=== PATIENT | female | born 1950 | race Caucasian/White ===

== ENCOUNTER 2020-12-27 06:05 | Day surgery (SDC) | payer MEDICARE ==
[2020-12-27] MEDS ORDERED: Lactated Ringers 1,000 ML IV ONE (06:30)
[2020-12-27] MEDS ORDERED: Lactated Ringers 1,000 ML IV SCH (07:00)
[2020-12-27] MEDS ORDERED: DIPRIVAN 200 MG/20 ML IV ONE (07:09)
[2020-12-27 08:31] VITALS: O2SAT 96
[2020-12-27 09:10] VITALS: BP 137/61; PULSE 63
--- NOTE | 2020-12-27 09:25 | OP ---
SURGERY DATE/TIME: 12/27/2020 0711 PREOPERATIVE DIAGNOSIS: History of colon polyp. POSTOPERATIVE DIAGNOSIS: Sigmoid diverticulosis otherwise normal colon. PROCEDURE: Colonoscopy. SURGEON: Dr. Pineda. ANESTHESIA: MAC. Medications given by anesthesia department. HISTORY: The patient is a 70 year-old white female who has a history of a large sigmoid colon polyp removed. It was apparently tattooed at the time. The patient was felt the need to have re-evaluation. She was reappraised of the risks of the procedure including the risk of perforation, phlebitis, untoward reaction to medication, bleeding and missed lesions. The patient verbalized her understanding and desired to have the procedure performed. DESCRIPTION OF PROCEDURE: The patient was given the medications by the anesthesia department. She had continuous pulse oximetry, ECG monitoring, intermittent blood pressure monitoring and tidal CO2 monitoring during the examination. She was placed in the left lateral decubitus position. A digital rectal examination was performed and revealed external hemorrhoids but no other masses were felt. The flexible Olympus pediatric colonoscope was used to intubate the rectum. A view of the colon was developed sequentially to the cecum. Upon insertion and withdrawal was noted small diverticula mostly in the left side of the colon. We also encountered an area where the colon appeared to be tattooed previously in the sigmoid colon. There was no evidence of any residual polyp in this area. The scope was removed from the patient. She tolerated the procedure well and was sent back to OP recovery in good condition. The prep was noted to be fair to good. No other mucosal lesions were encountered.
== END 2020-12-27 09:12 | disposition home or self-care (01) ==
LOC: SDC 06:05
PROVIDERS: ATTEND Family Medicine
DX: K57.30 Diverticulosis of large intestine without perforation or abscess without bleeding (principal); Z86.010 Personal history of colon polyps
CPT/HCPCS: 99100; J2704